=== PATIENT | male | born 1930 | race African-American/Black ===

== ENCOUNTER 2021-07-27 12:23 | Inpatient (IN) | payer MEDICARE, OTHER ==
[~2021-07-27] VITALS: Ht 170.2 cm; Wt 95.3 kg
[2021-07-27] MEDS ORDERED: SODIUM CHLORIDE 0.9% 1,000 ML IV ONE (13:00)
[2021-07-27 13:15] LABS: EOSINOPHILS % 1.6 % (0.0-5.0); HEMATOCRIT. 40.4 % (42.0-52.0); HEMOGLOBIN. 12.8 g/dL (14.0-18.0); MEAN CORPUSCULAR HEMOGLOBIN 25.2 pg (28.0-32.0); MEAN CORPUSCULAR VOLUME 79.5 fL (80.0-94.0); MEAN PLATELET VOLUME 8.6 fl (7.4-10.4); MONOCYTES % 5.9 % (2.0-8.0); NEUTROPHILS % 74.5 % (40.0-76.0); PLATELET 150 x1000/uL (130-400); RED BLOOD CELL COUNT 5.08 mill/uL (4.7-6.1); RED CELL DISTRIBUTION WIDTH 20.1 % (11.6-14.6)
[2021-07-27 13:23] LABS: CHLORIDE 96 mEq/L (98-107)
[2021-07-27] MEDS ORDERED: VANCOMYCIN 1G PREMIX 200 ML IV NR (13:45)
[2021-07-27] MEDS ORDERED: PIPERACILLIN/TAZ 3.375G PREMIX 50 ML IV NR (13:45)
[2021-07-27 15:40] LABS: D-DIMER 1.67 mg/L FEU (<0.50); INR 1.2; PROTHROMBIN TIME 12.4 sec (9.6-11.0)
[2021-07-27] MEDS ORDERED: DOCUSATE SODIUM 100MG CAPSULE PO PRN (16:30)
[2021-07-27] MEDS ORDERED: DEXTROSE 50% WATER 50ML SYRINGE IV PRN (16:30)
[2021-07-27] MEDS ORDERED: GUAIFENESIN 200MG/10ML SUGAR FREE UDC PO PRN (16:30)
[2021-07-27] MEDS ORDERED: LORAZEPAM 0.5MG TABLET PO PRN (16:30)
[2021-07-27] MEDS ORDERED: IPRATROPIUM/ALBUTEROL 0.5-3(2.5)MG/3ML NEB NEB PRN (16:30)
[2021-07-27] MEDS ORDERED: ACETAMINOPHEN 325MG TABLET PO PRN (16:30)
[2021-07-27] MEDS ORDERED: HYDROCODONE/ACETAMINOPHEN 5/325MG TABLET PO PRN (16:30)
[2021-07-27] MEDS ORDERED: CLONIDINE 0.1MG TABLET PO PRN (16:30)
[2021-07-27] MEDS ORDERED: NA PHOS,M-B/NA PHOS,DI-BA ENEMA 118ML PR PRN (16:30)
[2021-07-27] MEDS ORDERED: ACETAMINOPHEN 650MG SUPP PR PRN (16:30)
[2021-07-27] MEDS ORDERED: MAGNESIUM/ALUMINUM HYDROXIDE/SIMETHICONE 30ML UDC PO PRN (16:30)
[2021-07-27] MEDS ORDERED: ONDANSETRON HCL 4MG/2ML INJ IV PRN (16:30)
[2021-07-27] MEDS ORDERED: ENOXAPARIN 100MG/ML SYR SUBCUT SCH (17:00)
[2021-07-27] MEDS ORDERED: CEFTRIAXONE 1 G PREMIX 50 ML IV SCH (17:00)
[2021-07-27] MEDS: BLOOD SUGAR DIAGNOSTIC STRIP TEST SCH ×2 (17:00→21:59)
[2021-07-27] MEDS: INSULIN LISPRO 100 UNITS/ML SUBCUT SCH ×2 (18:20→21:00)
[2021-07-27] MEDS: CEFTRIAXONE 1,000 MG in DEXTROSE 5% WATER 50 ML IV SCH (21:13)
[2021-07-27] MEDS: FAMOTIDINE 20MG TABLET PO SCH (21:59)
[2021-07-27] MEDS ORDERED: DILTIAZEM HCL 30MG TABLET PO SCH (22:00)
[2021-07-27 22:48] VITALS: BP 127/49
[2021-07-27 23:37] LABS: CREATINE KINASE MB FRACTION 5.8 ng/mL (0.5-3.6)
[2021-07-28] VITALS: BP 107/45
[2021-07-28] MEDS: DIPHENHYDRAMINE 50MG/ML VIAL IV PRN ×2 (02:44→22:38)
[2021-07-28 04:00] VITALS: BP 110/46
[2021-07-28] MEDS: BLOOD SUGAR DIAGNOSTIC STRIP TEST SCH ×4 (06:52→21:12)
[2021-07-28] MEDS: INSULIN LISPRO 100 UNITS/ML SUBCUT SCH ×4 (06:53→21:00)
[2021-07-28 08:00] VITALS: BP 126/63
[2021-07-28 09:14] LABS: CREATINE KINASE MB FRACTION 6.7 ng/mL (0.5-3.6)
[2021-07-28 09:36] LABS: BASOPHILS % 1.2 % (0.0-2.0); EOSINOPHILS % 3.1 % (0.0-5.0); HEMATOCRIT. 37.9 % (42.0-52.0); HEMOGLOBIN. 12.1 g/dL (14.0-18.0); MEAN CORPUSCULAR HEMOGLOBIN 25.5 pg (28.0-32.0); MEAN CORPUSCULAR VOLUME 80.2 fL (80.0-94.0); MEAN PLATELET VOLUME 9.1 fl (7.4-10.4); MONOCYTES % 7.2 % (2.0-8.0); NEUTROPHILS % 63.5 % (40.0-76.0); PLATELET 158 x1000/uL (130-400); RED BLOOD CELL COUNT 4.73 mill/uL (4.7-6.1); RED CELL DISTRIBUTION WIDTH 20.2 % (11.6-14.6)
[2021-07-28 12:00] VITALS: BP 139/66
[2021-07-28 13:39] LABS: CREATINE KINASE MB FRACTION 5.6 ng/mL (0.5-3.6)
[2021-07-28] MEDS ORDERED: ASPI-1497 PO (15:48)
[2021-07-28] MEDS ORDERED: ALLO100T PO (15:48)
[2021-07-28] MEDS ORDERED: CALC667T6 MT (15:48)
[2021-07-28] MEDS ORDERED: LOVA20TA2 PO (15:48)
[2021-07-28 16:00] VITALS: BP 120/58
[2021-07-28] MEDS: AMIODARONE HCL 200 MG TABLET PO SCH (17:50)
[2021-07-28] MEDS: APIXABAN 2.5 MG TABLET PO SCH (17:50)
[2021-07-28 20:00] VITALS: BP 127/66
[2021-07-28] MEDS: CEFTRIAXONE 1,000 MG in DEXTROSE 5% WATER 50 ML IV SCH (21:11)
[2021-07-28] MEDS: FAMOTIDINE 20MG TABLET PO SCH (21:11)
[2021-07-28] MEDS ORDERED: NALOXONE HCL 0.4MG/ML VIAL IV PRN (21:15)
[2021-07-29] VITALS: BP 108/51
[2021-07-29 04:00] VITALS: BP 137/61
[2021-07-29] MEDS: INSULIN LISPRO 100 UNITS/ML SUBCUT SCH ×2 (05:42→11:56)
[2021-07-29] MEDS: BLOOD SUGAR DIAGNOSTIC STRIP TEST SCH ×2 (05:42→11:56)
[2021-07-29 07:43] LABS: BASOPHILS % 1.2 % (0.0-2.0); EOSINOPHILS % 4.6 % (0.0-5.0); HEMATOCRIT. 36.7 % (42.0-52.0); HEMOGLOBIN. 11.6 g/dL (14.0-18.0); LYMPHOCYTES % 24.1 % (20.0-50.0); MEAN CORPUSCULAR HEMOGLOBIN 25.3 pg (28.0-32.0); MEAN CORPUSCULAR VOLUME 80.2 fL (80.0-94.0); MEAN PLATELET VOLUME 8.9 fl (7.4-10.4); MONOCYTES % 9.2 % (2.0-8.0); NEUTROPHILS % 60.9 % (40.0-76.0); PLATELET 147 x1000/uL (130-400); RED BLOOD CELL COUNT 4.57 mill/uL (4.7-6.1); RED CELL DISTRIBUTION WIDTH 20.1 % (11.6-14.6)
[2021-07-29 08:00] VITALS: BP 148/60
[2021-07-29] MEDS: APIXABAN 2.5 MG TABLET PO SCH (08:34)
[2021-07-29] MEDS: AMIODARONE HCL 200 MG TABLET PO SCH (08:34)
[2021-07-29 12:00] VITALS: BP 101/65
[2021-07-29 15:41] VITALS: BP 134/49
[2021-07-29 16:00] VITALS: BP 134/49
== END 2021-07-29 16:30 | disposition home or self-care (01) | DRG 280 ==
LOC: ER 13:08 → 5WST 15:28 → EDBEDREQ 15:36 → EDBEDREQTM 15:36 → EDBEDREQSVC 15:36 → ENRESERV 19:51 → 5WST 07-28 05:05
PROVIDERS: ADMIT Internal Medicine; ATTEND Internal Medicine
DX: I48.0 Paroxysmal atrial fibrillation (principal); I21.4 Non-ST elevation (NSTEMI) myocardial infarction; I48.92 Unspecified atrial flutter; N18.6 End stage renal disease; D68.59 Other primary thrombophilia; E87.2 Acidosis; I13.11 Hypertensive heart and chronic kidney disease without heart failure, with stage 5 chronic kidney disease, or end stage renal disease; E78.5 Hyperlipidemia, unspecified; E11.22 Type 2 diabetes mellitus with diabetic chronic kidney disease; D64.9 Anemia, unspecified; Z79.899 Other long term (current) drug therapy; Z85.46 Personal history of malignant neoplasm of prostate; Z86.73 Personal history of transient ischemic attack (TIA), and cerebral infarction without residual deficits; Z87.891 Personal history of nicotine dependence; Z92.3 Personal history of irradiation; Z99.2 Dependence on renal dialysis
CPT/HCPCS: 36415; 71045; 78582; 80048; 80053; 82550; 82553; 82962; 83036; 83605; 83735; 83880; 84145; 84443; 84484; 85025; 85379; 93005; 93306; 93970; 97161; 99291; A9558; J0696; J1200; J1650; J2543; J3370; J7030; J7060